=== PATIENT | female | born 1985 | race Caucasian/White ===

== ENCOUNTER → 2020-03-09 | Outpatient (CLI) | payer OTHER | END | disposition home or self-care (01) | LOC: RAD 16:39 | PROVIDERS: ATTEND Physician Assistant | DX: N20.0 Calculus of kidney (principal) | CPT/HCPCS: 74176 ==

== ENCOUNTER 2020-03-15 16:33 | Day surgery (SDC) | payer OTHER ==
[~2020-03-15] VITALS: Ht 165.1 cm; Wt 54.0 kg
[2020-03-15 17:14] VITALS: BP 138/87
[2020-03-15] MEDS ORDERED: CHLORHEXIDINE 15 ML UDC ONE (17:41)
[2020-03-15 18:10] VITALS: BP 149/95
[2020-03-15] MEDS ORDERED: METF500T17 PO (18:21)
[2020-03-15] MEDS ORDERED: NORE1CAP PO (18:21)
[2020-03-15] MEDS ORDERED: CETI10TA76 PO (18:21)
[2020-03-15] MEDS ORDERED: TRAM50TA2 PO (18:23)
[2020-03-15] MEDS ORDERED: ACET1TAB64 PO (18:23)
[2020-03-15] MEDS ORDERED: LACTATED RINGERS 1,000 ML IV SCH (18:30)
[2020-03-15] MEDS ORDERED: CHLORHEXIDINE 15 ML UDC MM ONE (18:30)
[2020-03-15 18:52] LABS: HCG UR SG 1.024 (1.003-1.030)
[2020-03-15] MEDS ORDERED: MIDAZOLAM 1 MG/ML, 2ML ONE (19:05)
[2020-03-15] MEDS ORDERED: FENTANYL PF 100 MCG/2ML ONE (19:05)
[2020-03-15] MEDS ORDERED: ONDANSETRON 2MG/ML, 2ML ONE (19:10)
[2020-03-15] MEDS ORDERED: PROPOFOL 10 MG/ML, 20ML ONE (19:10)
[2020-03-15] MEDS ORDERED: CEFAZOLIN 1,000 MG ONE (19:10)
[2020-03-15] MEDS ORDERED: PROMETHAZINE 25 MG/ML, 1ML IVPush PRN (19:30)
[2020-03-15] MEDS ORDERED: DIPHENHYDRAMINE 50 MG/ML, 1ML IVPush PRN (19:30)
[2020-03-15] MEDS ORDERED: FENTANYL PF 100 MCG/2ML IV PRN (19:30)
[2020-03-15] MEDS ORDERED: ACETAMINOPHEN 325 MG TABLET PO PRN (19:30)
[2020-03-15] MEDS ORDERED: ONDANSETRON 2MG/ML, 2ML IVPush PRN (19:30)
[2020-03-15] MEDS ORDERED: DIAZEPAM 5 MG/ML, 2ML IVPush PRN (19:30)
[2020-03-15] MEDS ORDERED: MEPERIDINE/PF 25MG/0.5ML IVPush PRN (19:30)
[2020-03-15] MEDS ORDERED: HYDROmorphone 1 MG/ML, 1ML INJ IVPush PRN (19:30)
[2020-03-15] MEDS ORDERED: MEPERIDINE/PF 25MG/ML,1ML ONE (19:57)
[2020-03-15] MEDS ORDERED: OXYcodone 5 MG/5 ML ORAL.SOL UDC ONE (20:16)
[2020-03-15] MEDS ORDERED: ACETAMINOPHEN 650 MG/20.3 ML UDC ONE (20:16)
[2020-03-15] MEDS: OXYcodone 5 MG/5 ML ORAL.SOL UDC PO PRN ×2 (20:19→21:41)
[2020-03-15 20:49] VITALS: BP 139/90
== END 2020-03-15 22:30 | disposition home or self-care (01) ==
LOC: OR 16:33 → 4NE 16:48 → OR 22:30
PROVIDERS: ATTEND Student in an Organized Health Care Education/Training Program
DX: R10.32 Left lower quadrant pain (principal); Z20.828 Contact with and (suspected) exposure to other viral communicable diseases; R39.15 Urgency of urination; R35.0 Frequency of micturition; Z79.84 Long term (current) use of oral hypoglycemic drugs; Z79.891 Long term (current) use of opiate analgesic; Z79.899 Other long term (current) drug therapy; Z87.440 Personal history of urinary (tract) infections; Z87.442 Personal history of urinary calculi; Z84.1 Family history of disorders of kidney and ureter
CPT/HCPCS: 52351; 74018; 81025; 87635; C1769; J0690; J2175; J2250; J2405; J2704; J3010; J7120; 76000; G0378

== ENCOUNTER → 2020-03-23 | Outpatient (CLI) | payer OTHER ==
[~2020-03-23] MED LIST: ACET1TAB64 PO; CETI10TA76 PO; METF500T17 PO; NORE1CAP PO; TRAM50TA2 PO
== END | disposition home or self-care (01) ==
LOC: CFH 07:21
PROVIDERS: ATTEND Obstetrics & Gynecology Gynecology
DX: N94.10 Unspecified dyspareunia (principal); R10.2 Pelvic and perineal pain
CPT/HCPCS: 76830